=== PATIENT | male | born 1995 | race Caucasian/White ===

== ENCOUNTER 2016-07-13 14:41 | Emergency (ER) | payer MEDICAID, OTHER ==
[2016-07-13 15:02] VITALS: BP 115/64
[2016-07-13] MEDS ORDERED: NORMAL SALINE 1,000 ML IV ONE (15:10)
--- OUTSIDE RECORDS SUMMARY | 2016-07-13 15:25 | XMS REPORT | Continuity of Care Document ---
:1995 Author Organization [facility] ([facility]) Address [address] [place] [address] Phone [phone] Care Team Providers Name Role Phone Franny Omalley Primary Care Provider [phone] Source Comments This disclosure is being made pursuant to the Care Everywhere program, applicable federal and state laws, and may not contain all informaitonavailable regarding this patient.[facility] ([facility]) Active Allergies and Adverse Reactions Allergen Noted Date Severity Reactions Comments Amoxicillin Urticaria (Hives) Current Medications No known medications Active Problems Problem Noted Date 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 Pain in joint, ankle and foot 11/05/2006 Hydronephrosis 01/12/1999 Social History Tobacco Use Types Packs/Day Years Used Date Current Some Day Smoker Cigarettes 0.5 3 Smokeless Tobacco: Former User Chew Quit: 10/12/2012 Tobacco Cessation:Counseling Given: Yes Comments: Alcohol Use Drinks/Week oz/Week Comments Yes 4 Standard drinks or equivalent 2.4 less than once a month Last Filed Vital Signs Vital Sign Reading Time Taken Blood Pressure 114/68 11/24/2014 2:10 PM CDT Pulse 79 11/24/2014 2:10 PM CDT Temperature 36.9 C (98.4 F) 11/24/2014 2:10 PM CDT Respiratory Rate 20 11/21/2014 6:30 AM CDT Height 1.626 m (5' 4") 11/29/2009 11:50 AM CDT Weight 49.896 kg (110 lb) 11/21/2014 4:48 AM CDT Body Mass Index - - Oxygen Saturation 97% 11/21/2014 4:48 AM CDT Plan of Care Health Maintenance Due Date Last Done Comments Hepatitis B Vaccine (1 of 3 - Primary Series) 1995 HPV Vaccine (1 of 3 - Male 3 Dose Series) 02/05/2004 Tdap Vaccine 02/05/2004 Lipid Disorder Screening 2011 MMR Vaccine 2011 Td Vaccine 2011 Varicella Vaccine (1 of 2 - Adult - No Evidence of 2011 Immunity) Pneumococcal Vaccine (1 of 1 - PPSV23) 02/05/2012 Influenza Vaccine: Seasonal (#1) 09/27/2015 Results from Last 3 Months Not on file
[2016-07-13 15:29] LABS: Hematocrit 38.9 % (42.0-52.0); Hemoglobin 13.5 gm/dL (13.5-18.0); Mean Corpuscular Hemoglobin 30.5 pg (27-31); Mean Corpuscular Hgb Conc 34.7 g/dl (32-36); Mean Platelet Volume 8.3 fl (6.0-9.5); Neutrophil # 4.8 K/mm3 (1.3-6.0); Platelet Count 300 K/mm3 (150-450); Red Blood Count 4.42 M/mm3 (4.7-6.0); Red Cell Distribution Width 12.9 % (11.5-14.0); White Blood Count 7.3 K/mm3 (4.0-10.5)
[2016-07-13 15:44] LABS: Albumin * 3.7 gm/dl (3.4-5.0); Anion Gap 12.3 mmol/L (6.8-13.8); BUN/Creatinine Ratio 20.8 (9.0-21.6); Bilirubin, Total 0.7 mg/dL (0.0-1.1); Ca. Corrected For Albumin 8.2 mg/dL (8.4-10.2); Calcium * 8.3 mg/dL (7.9-10.9); Carbon Dioxide 27.9 mmol/L (24-32.6); Potassium 4.2 mmol/L (3.4-4.6); Total Protein 7.1 gm/dL (6.2-8.2)
[2016-07-13] MEDS ORDERED: metroNIDAZOLE/SODIUM CHLORIDE 500 MG/100 ML BAG IV SCH (16:00)
[2016-07-13] MEDS ORDERED: IBUPROFEN 400 MG TABLET ONE (17:53)
[2016-07-13] MEDS ORDERED: IBUPROFEN 400 MG TABLET PO ONE (17:55)
--- NOTE | 2016-07-13 18:01 | ERNOTE ---
Lower Extremity HPI - Narrative Date of Service: 07/13/16 - General Lower Extremities Pain: foot: right - red, wounds, swollen, ankle: right - red, wounds, swollen, heel: right - red, wounds, swollen Time Seen by Provider: 07/13/16 15:15 Source: patient Exam Limitations: no limitations - Immun/Allergies/Home Medications Immunizations: IMMUNIZATION HX History of Influenza Vaccine No Hx Pneumococcal Vaccination No Allergies/Adverse Reactions: Allergies Allergy/AdvReac Type Severity Reaction Status Date / Time amoxicillin [Amoxicillin] AdvReac Mild rash Verified 09/04/15 08:27 Home Medications: HOME MEDICATIONS FLUoxetine HCL [Prozac] 20 mg PO DAILY 09/04/15 [Last Taken Unknown] Sulfamethoxazole/Trimethoprim [Bactrim Ds] 1 tab PO BID #20 tab 07/13/16 [Last Taken Unknown] metroNIDAZOLE [Flagyl] 500 mg PO Q8H #30 tablet 07/13/16 [Last Taken Unknown] - History of Present Illness Narrative: 21-year-old male presents to the emergency room for bilateral lower extremity edema and redness. Patient states that he was walking around in dirty [place] water with boots that did not have socks on and he suddenly developed the sores 2 days ago and now overnight they've become very red and painful. Date (Duration): 07/13/16 Occurred: yesterday Location of Incident: home Method of Injury: Reports: unknown Modifying Factors - (Worsens): Reports: movement Associated Symptoms: Reports: other injuries - open sores with blisters Subsequent Symptoms: Denies: sensory loss, motor loss, bowel/bladder problem Review of Systems - Review of Systems Constitutional: Present: no symptoms reported EYE: Present: no symptoms reported ENT: Present: no symptoms reported Respiratory: Present: no symptoms reported Cardiology: Present: no symptoms reported Gastrointestinal/Abdominal: Present: no symptoms reported Genitourinary: Present: no symptoms reported Musculoskeletal: Present: joint pain Skin: Present: See HPI, rash, lesions, change in color Neurological: Present: no symptoms reported Endocrine: Present: no symptoms reported Hematologic/Lymphatic: Present: no symptoms reported Psych: Present: no symptoms reported - Patient's Past Medical History Patient History - Medical: No pertinent hx, Other Patient History - Cardiac/Respiratory: No pertinent hx Patient History - Cancer: No Hx of Cancer Patient History - Surgical Procedures: Noncontributory Patient History - Other: None - Social History Living Situations: home Abuse History: No History of abuse Psych History: Hx of Anxiety Smoking Status: Current every day smoker Alcohol Use: none Drug Use: none - Immunizations Hx Pneumococcal Vaccination: No History of Influenza Vaccine: No Physical Exam - Physical Exam Narrative: patient has reddness/swelling to both feet/ankles. he has multiple open areas on both feet with varying depths ranging from blisters to subcutaneous openings. He has +2 bilateral pedal edema. Areas are painful. some sores are weepy others are dry. General Appearance: Present: wd/wn, alert, no apparent distress ED Progress - Date and Time Seen: Date and Time: 07/13/16 after speaking with patients father he informed us that he has caught patient injecting IV drugs and is concerned about these wounds being from that. - Results and Orders Patient's Lab Results:: I have reviewed the patient's lab results. - Vital Signs Patient's Vital Signs:: I have reviewed the patient's vital signs. Vital Signs: Vital Signs 07/13/16 14:58 Temperature 36.4 C L Pulse Rate 97 Respiratory 18 Rate Blood Pressure 115/64 O2 Sat by Pulse 99 Oximetry - Progress/Reassessment Chief Complaint: Lower Extremity Pain/ Injury Plan - Plan Plan: patient refused tetanus shot. Patient is unsure if he is going to be able to return for IV or IM medications foe the next few days. Patient states he will have a ride to get to his appointment at the wound clinic on Sunday Departure Clinical Impression: Cellulitis Qualifiers: Site of cellulitis: extremity Site of cellulitis of extremity: lower extremity Laterality: unspecified laterality Qualified Code(s): L03.119 - Cellulitis of unspecified part of limb - Departure Disposition: Home Follow Up Needed Condition: Stable Instructions: Cellulitis, Adult, [id number] Additional Instructions: Please attend your follow up wound care appointment on Sunday at 1245 here at the wound clinic. Continue any previous home medications. Return to the emergency room if symptoms become worse her pain is unable to be controlled with [id number] pain medications. Take all antibiotics as directed. And make sure that you come into the [facility] for your appointment. Keep your wounds clean and dry. You were shown how to perform your dressing changes. You should change them daily and as needed. Prescriptions: Sulfamethoxazole/Trimethoprim [Bactrim Ds] 1 tab PO BID #20 tab metroNIDAZOLE [Flagyl] 500 mg PO Q8H #30 tablet
== END 2016-07-13 18:07 | disposition home or self-care (01) ==
LOC: ER 14:41
DX: L03.119 Cellulitis of unspecified part of limb (principal); Z72.0 Tobacco use